=== PATIENT | female | born 1980 | race Caucasian/White ===

== ENCOUNTER 2018-11-10 12:49 | Emergency (ER) | payer BC, OTHER ==
[2018-11-10] MEDS: LIDOCAINE 1% (MPF) 5 ML VIAL INFIL (14:39)
[2018-11-10] MEDS: ACETAMINOPHEN 325 MG TAB PO (16:09)
== END 2018-11-10 16:33 | disposition home or self-care (01) ==
LOC: FTE 12:49
DX: N75.1 Abscess of Bartholin's gland (principal)
CPT/HCPCS: 56420; 99282-25

== ENCOUNTER 2019-02-15 00:45 | Outpatient (CLI) | payer BC ==
[2019-02-15 02:00] LABS: ADD UMIC YES; UR ASCORBIC ACID NEGATIVE (NEGATIVE); UR BACTERIA FEW /HPF (NONE SEEN); UR BILIRUBIN (Dip) NEGATIVE (NEGATIVE); UR BLOOD (Dip) NEGATIVE (NEGATIVE); UR CLARITY SLIGHTLY CLOUDY (CLEAR); UR COLOR YELLOW (YELLOW); UR GLUCOSE (Dip) NEGATIVE (NEGATIVE); UR KETONES (Dip) NEGATIVE (NEGATIVE); UR LEUKOCYTE ESTERASE (Dip) 2+ Leu/ul (NEGATIVE); UR MUCUS FEW /HPF (NONE SEEN); UR NITRITE (Dip) NEGATIVE (NEGATIVE); UR RBC 2 /HPF (0-5); UR SPECIFIC GRAVITY (Dip) 1.025 (1.003-1.030); UR SQUAMOUS EPITHELIAL CELL MODERATE /HPF (FEW); UR TOTAL PROTEIN (Dip) NEGATIVE (NEGATIVE); UR UROBILINOGEN (Dip) NEGATIVE (NEGATIVE); UR WBC 11 /HPF (0-5)
== END 2019-02-15 02:25 | disposition home or self-care (01) ==
LOC: OBT 00:45 → L-D 00:46 → OBT 02:25
DX: O9A.212 Injury, poisoning and certain other consequences of external causes complicating pregnancy, second trimester (principal); S30.1XXA Contusion of abdominal wall, initial encounter; R10.2 Pelvic and perineal pain; O09.522 Supervision of elderly multigravida, second trimester; Z3A.21 21 weeks gestation of pregnancy; W22.09XA Striking against other stationary object, initial encounter; Y92.89 Other specified places as the place of occurrence of the external cause
CPT/HCPCS: 76815; 81001; 86850; 86900; 86901; 87086